=== PATIENT | male | born 1960 | race Caucasian/White ===

== ENCOUNTER 2018-06-03 01:06 | Emergency (ER) ==
[2018-06-03 01:16] VITALS: BMI 34.0
[2018-06-03] MEDS ORDERED: ZOFRAN 4 MG/2 ML IVP STA ×2 (01:30→05:58)
[2018-06-03] MEDS ORDERED: SODIUM CHLORIDE 1,000 ML IV STA ×2 (01:30→03:57)
[2018-06-03] MEDS ORDERED: DEMEROL 25 MG/ML VIAL IVP STA (01:33)
--- NOTE | 2018-06-03 02:47 | CT ---
EXAM: CT abdomen pelvis without intravenous contrast 10/02/2017. Sagittal and coronal reformatted i mages obtained HISTORY: Abdominal bloating COMPARISON: 07/30/2011 FINDINGS: The liver, gallbladder, adrenal glands and kidneys show no acute abnormality. There is no urinary obstruction. There is thickening of the urinary bladder wall with adjacent edema. Correlat e to exclude cystitis. The spleen and pancreas show no acute abnormality. Proximal small bowel is normal in caliber. Distal small bowel is abnormally dilated and fluid-filled . Multiple air fluid levels. Pelvic small bowel is dilated up to approximate 4.2 cm diameter. This extends through the right lower quadrant ostomy site. No definitive transition point identified. D ifferential considerations include severe ileus versus distal small bowel obstruction. There is a small quantity free fluid within the pelvis. There are multiple adjacent sites of fat containing ventral hernia as seen on image 83. No bowel her niation identified. No acute osseous abnormality. 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 No acute osseous abnormality. IMPRESSION: 1. Right lower quadrant ostomy. Abnormal dilatation of distal small bowel through the ostomy site. This measures up to 4.2 cm diameter. Differential considerations include distal small bowel obstruc tion as well as severe ileus. Further evaluation with oral contrast material may be of benefit if cl inically indicated. Small bowel series could be considered. 2. Small quantity of free fluid within the pelvis. 3. Thickening of the bladder wall with perivesicular edema. Correlate for cystitis. 4. Avascular necrosis of the femoral heads.
--- NOTE | 2018-06-03 03:21 | ED.PDOC ---
General ED Provider: Dr. DUSTIN WARE-ER Chief Complaint: Abdominal Pain Stated Complaint: im hurting Time Seen by Physician: 03:20 Mode of Arrival: Walk-In Information Source: Patient, Assisted Living Exam Limitations: No limitations Primary Care Provider: DUSTIN WARE Nursing and Triage Documentation Reviewed and Agree: Yes Does patient meet sepsis criteria?: No System Inflammatory Response Syndrome: Not Applicable Sepsis Protocol: For patient's 13 years and over: Temp is 96.8 and below OR 101 and greater Pulse >90 BPM Resp >20/minute Acutely Altered Mental Status Are patient's symptoms suggestive of a new infection, such as: -Pneumonia -Skin, Soft Tissue -Endocarditis -UTI -Bone, Joint Infection -Implantable Device -Acute Abdominal Infection -Wound Infection -Meningitis -Blood Stream Catheter Infection -Unknown GI Complaint Exam - Abdominal Pain Complaint/Exam Onset: Gradual Duration: 24 hrs Symptoms Are: Still present Timing: Constant Initial Severity: Moderate Location of Pain: Diffuse Character: Reports: Dull, Throbbing Alleviating: Reports: Spontaneous resolution Related History: Reports: Similar episode AAA Risk Factors: Reports: None Cardiac Risk Factors: Reports: None Testicular Torsion Risk Factors: Reports: None Surgical Obstruction Risk Factors: Reports: None Related Surgical History: Reports: Bowel Resection Abdominal Findings: Present: None Genitalia Exam: Present: Normal findings Differential Diagnoses: Bowel Obstruction Quality Indicator For Non-Traumatic Chest Pain/Syncope: EKG Performed Review of Systems - Review Of Systems Constitutional: Reports: No symptoms Eyes: Reports: No symptoms Ears, Nose, Mouth, Throat: Reports: No symptoms Respiratory: Reports: No symptoms Cardiac: Reports: No symptoms GI: Reports: Abdominal pain, Nausea : Reports: No symptoms Musculoskeletal: Reports: No symptoms Skin: Reports: No symptoms Neurological: Reports: No symptoms Endocrine: Reports: No symptoms Hematologic/Lymphatic: Reports: No symptoms All Other Systems: Reviewed and Negative Past Medical History - Past Medical History Previously Healthy: No Endocrine: Reports: Unknown Cardiovascular: Reports: Unknown Respiratory: Reports: Unknown Hematological: Reports: Unknown Gastrointestinal: Reports: Unknown Genitourinary: Reports: Unknown Neuro/Psych: Reports: Unknown Musculoskeletal: Reports: Unknown Cancer: Reports: Unknown - Surgical History General Surgical History: Reports: Unknown - Family History Family History: Reports: Unknown - Social History Smoking Status: Former smoker Hx Substance Use: No Alcohol Screening: None - Immunizations Tetanus Shot up to Date: No Physical Exam - Physical Exam Appearance: Well-appearing, No pain distress, Well-nourished Eyes: [place] ENT: Ears normal, Nose normal, Oropharynx normal Neck: Supple Respiratory: Airway patent, Breath sounds clear, Breath sounds equal, Respirations nonlabored Cardiovascular: RRR GI/: Soft, Tender Musculoskeletal: Normal strength, ROM intact, No edema, No calf tenderness Skin: Warm, Dry, Normal color Neurological: Sensation intact, Motor intact, Reflexes intact, Cranial nerves intact, Alert, Oriented Psychiatric: Affect appropriate, Mood appropriate Interpretation - Radiology Interpretation Radiology Interpretation By: Radiologist Radiology Results: Positive Exam Interpreted: CT Scan - EKG Interpretation Time of EKG #1: 03:22 Rate: Normal Rhythm: Sinus Ectopy: None [place]: NL ST Segment: Normal Interpretation: nsr Critical Care Note - Critical Care Note Total Time (mins): 0 Course - Course Hematology/Chemistry: 06/03/18 01:55 06/03/18 01:55 Orders, Labs, Meds: Lab Review 06/03/18 06/03/18 06/03/18 01:55 01:55 01:55 WBC 10.23 H RBC 5.56 Hgb 15.9 Hct 47.8 MCV 86.0 MCH 28.6 MCHC 33.3 RDW Coeff of Kash 13.2 Plt Count 241 Immature Gran % (Auto) 0.2 Neut % (Auto) 79.9 Lymph % (Auto) 10.3 [place] % (Auto) 8.1 Eos % (Auto) 1.1 Baso % (Auto) 0.4 Immature Gran # (Auto) 0.0 Neut # (Auto) 8.2 H Lymph # (Auto) 1.1 [place] # (Auto) 0.8 Eos # (Auto) 0.1 Baso # (Auto) 0.0 ESR 7 Sodium 132.7 L Potassium 4.67 Chloride 100.9 Carbon Dioxide 23.1 Anion Gap 13.37 BUN 12.1 Creatinine 0.83 Estimated GFR (MDRD) 95.00 BUN/Creatinine Ratio 14.57 Glucose 154.3 H Calcium 8.76 Total Bilirubin 2.22 H AST 35.7 ALT 22.1 Alkaline Phosphatase 74.9 Total Creatine Kinase 88.4 Troponin I < 0.012 Total Protein 7.90 Albumin 4.56 Globulin 3.34 Albumin/Globulin Ratio 1.36 Amylase 98.6 Lipase 271.2 Urine Color Urine Clarity Urine pH Ur Specific [place] Urine Protein Urine Glucose (UA) Urine Ketones Urine Blood Urine Nitrite Urine Bilirubin Urine Urobilinogen Ur Leukocyte Esterase Influ A Molecular Assay Negative by naat Influ B Molecular Assay Negative by naat 06/03/18 04:20 WBC RBC Hgb Hct MCV MCH MCHC RDW Coeff of Kash Plt Count Immature Gran % (Auto) Neut % (Auto) Lymph % (Auto) [place] % (Auto) Eos % (Auto) Baso % (Auto) Immature Gran # (Auto) Neut # (Auto) Lymph # (Auto) [place] # (Auto) Eos # (Auto) Baso # (Auto) ESR Sodium Potassium Chloride Carbon Dioxide Anion Gap BUN Creatinine Estimated GFR (MDRD) BUN/Creatinine Ratio Glucose Calcium Total Bilirubin AST ALT Alkaline Phosphatase Total Creatine Kinase Troponin I Total Protein Albumin Globulin Albumin/Globulin Ratio Amylase Lipase Urine Color Yellow Urine Clarity Clear Urine pH 6.0 Ur Specific [place] 1.010 Urine Protein Negative Urine Glucose (UA) Negative Urine Ketones Negative Urine Blood Negative Urine Nitrite Negative Urine Bilirubin Negative Urine Urobilinogen 0.2 Ur Leukocyte Esterase Negative Influ A Molecular Assay Influ B Molecular Assay Orders Category Date Time Status EKG-(ED ONLY) Stat CARDIO 06/03/18 01:29 Completed TRANSFER TO OUTSIDE FACILITY .TO [facility] 06/03/18 06:39 Active ([place] [place], [place]) WRITE TRANSFER/SBAR NOTE ONCE CARE 06/03/18 06:39 Active DISCHARGE ASSESSMENT ONCE DISCHARGE 06/03/18 06:39 Active WRITE DISCHARGE NOTE ONCE DISCHARGE 06/03/18 06:39 Active IV [ED IV/MEDIPORT/POWERPORT] .ONCE EMERGENCY 06/03/18 01:30 Active AMYLASE Stat LAB 06/03/18 01:55 Completed CBC W/ AUTO DIFF Stat LAB 06/03/18 01:55 Completed COMPREHENSIVE METABOLIC PANEL Stat LAB 06/03/18 01:55 Completed CREATINE KINASE Stat LAB 06/03/18 01:55 Completed ESR Stat LAB 06/03/18 01:55 Completed FLU A/B MOLECULAR Stat LAB 06/03/18 01:55 Completed LIPASE Stat LAB 06/03/18 01:55 Completed MOLECULAR GROUP A STREP Stat LAB 06/03/18 01:55 Completed TROPONIN I Stat LAB 06/03/18 01:55 Completed URINALYSIS C & S IF INDICATED Stat LAB 06/03/18 04:20 Completed 0.9 % Sodium Chloride [Saline Flush] MEDS 06/03/18 01:30 Discontinued 1 syr IVF PRN PRN Meperidine HCl/Pf [Demerol 25 mg/ml Vial] MEDS 06/03/18 01:33 Discontinued 25 mg IVP ONCE STA Meperidine HCl/Pf [Demerol 50 mg/ml Vial] MEDS 06/03/18 05:58 Discontinued 50 mg IVP ONCE STA Ondansetron HCl/Pf [Zofran 4 mg/2 ml] MEDS 06/03/18 01:30 Discontinued 4 mg IVP ONCE STA Ondansetron HCl/Pf [Zofran 4 mg/2 ml] MEDS 06/03/18 05:58 Discontinued 4 mg IVP ONCE STA Promethazine HCl [Phenergan 25 mg/ml Vial] MEDS 06/03/18 05:20 Discontinued 25 mg .ROUTE .STK-MED ONE Promethazine HCl [Phenergan 25 mg/ml Vial] 12.5 mg MEDS 06/03/18 05:17 Discontinued 0.9 % Sodium Chloride [Sodium Chloride] 50 ml IV ONCE Sodium Chloride 0.9% [Sodium Chloride] 1,000 ml MEDS 06/03/18 03:57 Discontinued IV 100 mls/hr Sodium Chloride 0.9% [Sodium Chloride] 1,000 ml MEDS 06/03/18 01:[address] ABDOMEN/PELVIS WO CONTRAST Stat RADS 06/03/18 01:[address] ABDOMEN/PELVIS WO CONTRAST Stat RADS 06/03/18 03:24 Completed Medications Discontinued Medications Generic Name Dose Route Start Last Admin Trade Name Freq PRN Reason Stop Dose Admin Sodium Chloride 1,000 mls @ 1,000 mls/hr 06/03/18 01:30 06/03/18 01:59 Sodium Chloride IV 06/03/18 02:29 500 mls/hr BOLUS STA Administration Sodium Chloride 1,000 mls @ 100 mls/hr 06/03/18 03:57 06/03/18 04:00 Sodium Chloride IV 06/03/18 13:56 100 mls/hr .Q10H STA Administration Promethazine HCl 12.5 mg/ 50.5 mls @ 75 mls/hr 06/03/18 05:17 06/03/18 05:23 Sodium Chloride IV 06/03/18 05:57 75 mls/hr ONCE STA Administration Meperidine HCl 25 mg 06/03/18 01:33 06/03/18 02:04 Demerol 25 Mg/Ml Vial IVP 06/03/18 01:34 25 mg ONCE STA Administration Meperidine HCl 50 mg 06/03/18 05:58 06/03/18 06:08 Demerol 50 Mg/Ml Vial IVP 06/03/18 05:59 50 mg ONCE STA Administration Ondansetron HCl 4 mg 06/03/18 01:30 06/03/18 02:03 Zofran 4 Mg/2 Ml IVP 06/03/18 01:31 4 mg ONCE STA Administration Ondansetron HCl 4 mg 06/03/18 05:58 06/03/18 06:10 Zofran 4 Mg/2 Ml IVP 06/03/18 05:59 4 mg ONCE STA Administration Sodium Chloride 1 syr 06/03/18 01:30 06/03/18 06:09 Saline Flush IVF 1 syr PRN PRN Administration To flush IV Vital Signs: Temp Pulse Resp BP Pulse Ox 06/03/18 06:46 98.5 F 84 20 126/83 92 L 06/03/18 01:06 97.7 F 99 H 20 155/95 H 99 Departure - Departure Time of Disposition: 06:38 Disposition: TSF SHORT-TRM HOSP Discharge Problem: Ileus Instructions: Ileus (ED) Condition: Good Pt referred to PMD for follow-up: Yes IPMP verified?: No Allergies/Adverse Reactions: Allergies No Known Allergies Allergy (Unverified 06/03/18 01:15) Home Medications: Ambulatory Orders Glucosamine Sulfate 500 mg PO DAILY 06/03/18 Transfer Form Completed: Yes Disposition Discussed With: Patient
[2018-06-03] MEDS ORDERED: PHENERGAN 25 MG/ML VIAL 12.5 MG in SODIUM CHLORIDE 50 ML IV STA (05:17)
[2018-06-03] MEDS ORDERED: PHENERGAN 25 MG/ML VIAL ONE (05:20)
--- NOTE | 2018-06-03 05:56 | CT ---
EXAM: CT abdomen pelvis without intravenous contrast 05/14/2018. Sagittal and coronal reformatted i mages obtained HISTORY: Rule out obstruction COMPARISON: 06/03/2018 FINDINGS: The liver, gallbladder, adrenal glands, kidneys, spleen pancreas show no acute abnormality . There is persistent abnormal dilatation of distal small bowel. On image 125 this measures up to 4 .2 cm diameter. There is mild associated mucosal thickening. This may represent enteritis with ileu s. Oral contrast material passes through the distal most small bowel and passes through the ostomy s ite. There is no transition point or obstruction identified. Edematous appearance of the pelvic mesentery. Wall thickening of the urinary bladder with perivesicu lar stranding. Correlate for cystitis. There are multiple sites of fat containing ventral hernia. No bowel herniation. IMPRESSION: 1. Oral contrast material passes through the distal small bowel and ostomy site. No transition poin t identified. No evidence of obstruction. 2. There is suggestion mucosal thickening within the distal small bowel which could represent enteri tis. There may be associated ileus. Multiple air fluid levels within the dilated distal small bowel . 3. Wall thickening of the urinary bladder with perivesicular stranding. Correlate for cystitis. 4. Multiple sites of fat containing ventral hernia. No bowel herniation 5. If symptoms persist follow-up radiographs may be of benefit to assess progression of the oral con trast material.
[2018-06-03] MEDS ORDERED: DEMEROL 50 MG/ML VIAL IVP STA (05:58)
[2018-06-03 06:48] VITALS: BP 126/83; TEMP 98.5
== END 2018-06-03 07:49 | disposition short-term general hospital (02) ==
LOC: ED 01:06
DX: K56.7 Ileus, unspecified (principal); Z93.3 Colostomy status
CPT/HCPCS: 36415; 80053; 81001; 82150; 82550; 83690; 84484; 85025; 85651; 87502; 87651; 93005; 93010; 96361; 96365; 96375; 96376; 99285